=== PATIENT | male | born 1985 | race Two or more races ===

== ENCOUNTER 2022-10-13 09:20 | Emergency (ER) | payer MEDICAID ==
[~2022-10-13] VITALS: Ht 185.4 cm; Wt 106.0 kg
[2022-10-13 09:46] VITALS: BP 126/89
[2022-10-13] MEDS ORDERED: TRIA0.1O TOP (10:00)
[2022-10-13] MEDS ORDERED: PRED20TA2 PO ×3 (10:00→10:01)
== END 2022-10-13 10:04 | disposition home or self-care (01) ==
LOC: ER 09:20
DX: L20.9 Atopic dermatitis, unspecified (principal); Z88.6 Allergy status to analgesic agent